=== PATIENT | female | born 1960 | race Caucasian/White ===

== ENCOUNTER 2018-07-19 11:38 | Day surgery (SDC) | payer BC ==
[~2018-07-19] VITALS: Ht 165.1 cm; Wt 77.1 kg
[~2018-07-19 11:38] MED LIST: ENAL10TA2 PO; HUMA100I3 SC; LEVO-91 PO; LR 1,000 ML IV SCH; PRAV20TA2 PO; TRES100I SC
[2018-07-19 12:07] LABS: HEMATOCRIT 41.7 % (36.0-47.0); HEMOGLOBIN 14.1 g/dl (12.0-15.5); MEAN CORPUSCULAR HEMOGLOBIN 31.1 pg (27.0-33.0); MEAN CORPUSCULAR HGB CONC 33.8 g/dl (32.0-36.5); MEAN CORPUSCULAR VOLUME 92.1 fl (80.0-96.0); PLATELET COUNT, AUTOMATED 192 10^3/uL (150-450); RED BLOOD COUNT 4.53 10^6/uL (4.00-5.40); WHITE BLOOD COUNT 8.5 10^3/uL (4.0-10.0)
[2018-07-19 12:30] LABS: BLOOD UREA NITROGEN 12 MG/DL (7-18); CALCIUM LEVEL 9.4 MG/DL (8.5-10.1); CARBON DIOXIDE LEVEL 27 MEQ/L (21-32); CHLORIDE LEVEL 108 MEQ/L (98-107); CREATININE FOR GFR 0.78 MG/DL (0.55-1.30); GLOMERULAR FILTRATION RATE > 60.0 (>51); GLUCOSE, FASTING 174 MG/DL (70-100); POTASSIUM SERUM 4.5 MEQ/L (3.5-5.1); SODIUM LEVEL 140 MEQ/L (136-145)
[2018-07-19] MEDS ORDERED: LIDOCAINE 2% INJ 100 MG/5 ML SDV (FOR ANES.) As Ordered ONE (13:38)
[2018-07-19] MEDS ORDERED: PROPOFOL 200 MG/20 ML VIAL As Ordered ONE (13:38)
[2018-07-19] MEDS ORDERED: dexameTHASONE 4 MG/ML 1ML VIAL (J1100) As Ordered ONE (13:39)
[2018-07-19] MEDS ORDERED: ONDANSETRON 4MG/2ML VIAL (J2405) As Ordered ONE (13:39)
[2018-07-19] MEDS ORDERED: fentaNYL 100 MCG/2 ML INJECTION (J3010) As Ordered ONE ×2 (13:40→15:06)
[2018-07-19] MEDS ORDERED: MIDAZOLAM INJ 2 MG/2 ML VIAL (J2250) As Ordered ONE (13:40)
[2018-07-19] MEDS: fentaNYL 100 MCG/2 ML INJECTION (J3010) IV PRN ×2 (15:10→15:15)
[2018-07-19] MEDS ORDERED: PERCOCET 5MG/325MG TAB As Ordered ONE (15:15)
[2018-07-19] MEDS ORDERED: KETOROLAC 60 MG/2 ML VIAL (J1885) As Ordered ONE (15:19)
[2018-07-19] MEDS ORDERED: ONDANSETRON 4MG/2ML VIAL (J2405) IV PRN (15:30)
[2018-07-19] MEDS ORDERED: PERCOCET 5MG/325MG TAB PO PRN (15:30)
[2018-07-19] MEDS ORDERED: LR 1,000 ML IV SCH (15:30)
[2018-07-19] MEDS ORDERED: IBUPROFEN 600 MG TAB PO PRN (15:30)
--- NOTE | 2018-07-19 16:19 | ECGEPIP ---
Stationary ECG Study [facility] Test Date: 2018-07-19 Pat Name: KATERYNA CHONG Department: Room: - Gender: F Pull Up Hand: RF : 1960 Requested By: Ludivina Nobles Order Number: [id number] Reading MD: Robbie Heaton Measurements Intervals [place] Rate: 67 P: 51 [place]: 166 QRS: 0 QRSD: 85 T: 31 QT: 363 QTc: 384 Interpretive Statements SINUS RHYTHM, Within normal limits. No prior ECG available for comparison at the time of interpretation. Electronically Signed On 07-19-2018 16:19:02 EDT by Robbie Heaton
[2018-07-19 16:33] VITALS: BP 139/80
--- NOTE | 2018-07-27 21:58 | RO ---
DATE OF PROCEDURE: 07/19/2018 This is a repeat dictation. PREOPERATIVE DIAGNOSIS: Postmenopausal bleeding with thickened endometrium. POSTOPERATIVE DIAGNOSIS: Small fibroid and a fundal, I suspect, septum based on preoperative ultrasound findings, though, of course, hysteroscopically cannot conclusively distinguish septum from bicornuate uterine shape. PROCEDURE: Dilation and curettage, hysteroscopy, myomectomy. SURGEON: Dr. Ludivina Andrews HOSPITAL CLERK: None. ANESTHESIA: LMA. DESCRIPTION OF PROCEDURE: Veronique was brought to the operating room where sufficient LMA anesthesia was induced, and she was prepped, draped and positioned in the usual sterile fashion, the bladder emptied, and the anterior aspect of the cervix grasped with a single-tooth tenaculum. The cervix was carefully dilated and the hysteroscope placed. Visualization of the endometrial cavity showed a small posterior fibroid. This was just beyond the cervix in the lower uterine segment and then in the mid fundus, it is fairly broad, what I think is septum. Of course, this could be a bicornuate uterus or an atypical appearance to synechiae, but it definitely had a more characteristic appearance for septum. And the MyoSure device was passed, and we used it to sample this area and to perform a myomectomy on the fibroid. We were able to show sort of normal uterine tissue beneath the endometrium at the fundus, and, of course, tissue consistent with fibroid where the fibroid was. So, based on these findings, I believe this is a septum, and I think that combined with the small fibroid was what the ultrasound was seeing because the endometrium itself was atrophic and as expected in a 58-year-old. We were able to, of course, do a 360-degree sampling of the endometrium with the MyoSure. This was documented with pictures as was the myomectomy and the sampling of the septum. Following all of this, with the complete removal of the myoma and the sampling and the biopsy of septum, we completed the procedure. Estimated blood loss for the procedure: About 3 mL. Fluid replacement was crystalloid. Complications: None. Condition and Disposition: Veronique tolerated the procedure well and was recovering in the recovery room in good condition.
== END 2018-07-19 16:33 | disposition home or self-care (01) ==
LOC: M SDC 11:38
PROVIDERS: ATTEND Obstetrics & Gynecology
DX: N95.0 Postmenopausal bleeding (principal); D25.9 Leiomyoma of uterus, unspecified; E10.9 Type 1 diabetes mellitus without complications; E03.9 Hypothyroidism, unspecified; E78.00 Pure hypercholesterolemia, unspecified; K59.00 Constipation, unspecified; Z88.2 Allergy status to sulfonamides; Z79.899 Other long term (current) drug therapy; Z79.4 Long term (current) use of insulin; Z78.0 Asymptomatic menopausal state
CPT/HCPCS: 36415; 58561; 80048; 85027; 88305; 93005; J1100; J1885; J2250; J2405; J3010

== ENCOUNTER → 2021-09-27 | Outpatient (CLI) | payer OTHER ==
[~2021-09-27] MED LIST changes: +ENAL-36 PO; -ENAL10TA2 PO; +LEVO125T4 PO; -LR 1,000 ML IV SCH
== END ==
LOC: M LABSMTC 10:11
PROVIDERS: ATTEND Anesthesiology
DX: Z01.818 Encounter for other preprocedural examination (principal); Z11.52 Encounter for screening for COVID-19

== ENCOUNTER 2021-09-30 07:42 | Day surgery (SDC) | payer OTHER ==
[~2021-09-30] VITALS: Ht 165.1 cm; Wt 73.0 kg
[2021-09-30] MEDS ORDERED: NS 1,000 ML IV ONE (07:45)
[2021-09-30] MEDS ORDERED: LIDOCAINE 2% INJ 100 MG/5 ML SYRINGE As Ordered ONE (09:08)
[2021-09-30] MEDS ORDERED: propofoL 200 MG/20 ML VIAL As Ordered ONE (09:08)
[2021-09-30 09:26] VITALS: BP 143/69
== END 2021-09-30 09:30 | disposition home or self-care (01) ==
LOC: M SDC 07:42
PROVIDERS: ATTEND Surgery
DX: Z12.11 Encounter for screening for malignant neoplasm of colon (principal); Z80.0 Family history of malignant neoplasm of digestive organs; E07.9 Disorder of thyroid, unspecified; E11.9 Type 2 diabetes mellitus without complications; Z88.2 Allergy status to sulfonamides

== ENCOUNTER → 2022-04-08 | Outpatient (CLI) | payer OTHER | LOC: M WHC 10:22 | PROVIDERS: ATTEND Obstetrics & Gynecology | DX: Z12.31 Encounter for screening mammogram for malignant neoplasm of breast (principal) ==

== ENCOUNTER → 2022-04-08 | Outpatient (REF) | payer OTHER | LOC: M SFHCWAGY 17:24 | PROVIDERS: ATTEND Obstetrics & Gynecology | DX: Z12.4 Encounter for screening for malignant neoplasm of cervix (principal) ==

== ENCOUNTER → 2023-06-22 | Outpatient (CLI) | payer OTHER ==
[~2023-06-22] MED LIST changes: -ENAL-36 PO; +ENAL1TAB50 PO
== END ==
LOC: M WHC 09:30
PROVIDERS: ATTEND Obstetrics & Gynecology
DX: Z12.31 Encounter for screening mammogram for malignant neoplasm of breast (principal); R22.2 Localized swelling, mass and lump, trunk

== ENCOUNTER → 2023-06-22 | Outpatient (REF) | payer OTHER | LOC: M SFHCWAGY 13:48 | PROVIDERS: ATTEND Obstetrics & Gynecology | DX: Z12.4 Encounter for screening for malignant neoplasm of cervix (principal) ==

== ENCOUNTER 2023-11-08 07:22 | Day surgery (SDC) | payer OTHER ==
[~2023-11-08] VITALS: Ht 165.1 cm; Wt 79.5 kg
[~2023-11-08 07:22] MED LIST changes: +LR 1,000 ML IV SCH; +SYNT100T PO
[2023-11-08] MEDS ORDERED: LR 1,000 ML IV SCH (08:10)
[2023-11-08 08:23] LABS: HEMATOCRIT 37.3 % (36.0-47.0); HEMOGLOBIN 12.5 g/dl (12.0-15.5); MEAN CORPUSCULAR HEMOGLOBIN 31.2 pg (27.0-33.0); MEAN CORPUSCULAR HGB CONC 33.5 g/dl (32.0-36.5); PLATELET COUNT, AUTOMATED 134 10^3/uL (150-450); RED BLOOD COUNT 4.01 10^6/uL (4.00-5.40); WHITE BLOOD COUNT 6.6 10^3/uL (4.0-10.0)
[2023-11-08] MEDS ORDERED: KETAMINE HCL 200MG/20ML VIAL As Ordered ONE (08:37)
[2023-11-08] MEDS ORDERED: LIDOCAINE 2% 100MG/5ML SDV (FOR ANES.) As Ordered ONE (08:38)
[2023-11-08] MEDS ORDERED: MIDAZOLAM INJ 2MG/2ML VIAL As Ordered ONE (08:38)
[2023-11-08] MEDS ORDERED: propofoL 200 MG/20 ML VIAL As Ordered ONE (08:38)
[2023-11-08] MEDS ORDERED: fentaNYL 100 MCG/2 ML INJECTION As Ordered ONE (09:34)
[2023-11-08] MEDS: LIDOCAINE W/EPINEPHRINE 1% 20ML VIAL As Ordered ONE (10:11)
[2023-11-08] MEDS ORDERED: IBUP80TA PO (11:05)
[2023-11-08] MEDS ORDERED: DOCU-122 PO (11:06)
[2023-11-08] MEDS ORDERED: OXYC1TAB23 PO (11:08)
[2023-11-08 11:28] VITALS: BP 152/80; TEMP 97.5; O2SAT 99
== END 2023-11-08 11:35 | disposition home or self-care (01) ==
LOC: M SDC 07:22
PROVIDERS: ATTEND Obstetrics & Gynecology
DX: L92.3 Foreign body granuloma of the skin and subcutaneous tissue (principal); M60.28 Foreign body granuloma of soft tissue, not elsewhere classified, other site; M61.9 Calcification and ossification of muscle, unspecified; E10.9 Type 1 diabetes mellitus without complications; E03.9 Hypothyroidism, unspecified; J45.909 Unspecified asthma, uncomplicated; Z88.2 Allergy status to sulfonamides; Z79.4 Long term (current) use of insulin; Z79.899 Other long term (current) drug therapy
CPT/HCPCS: 22903; 36415; 81025; 85027; 86850; 86900; 86901; 88305; J2250; J3010

== ENCOUNTER → 2024-06-24 | Outpatient (CLI) | payer OTHER ==
[~2024-06-24] MED LIST changes: +DOCU-122 PO; +IBUP80TA PO; -LR 1,000 ML IV SCH; +OXYC1TAB23 PO
== END ==
LOC: M WHC 10:19
PROVIDERS: ATTEND Obstetrics & Gynecology
DX: Z12.31 Encounter for screening mammogram for malignant neoplasm of breast (principal); R92.313 Mammographic fatty tissue density, bilateral breasts

== ENCOUNTER → 2024-06-24 | Outpatient (REF) | payer OTHER | LOC: M SFHCWAGY 12:44 | PROVIDERS: ATTEND Obstetrics & Gynecology | DX: Z12.4 Encounter for screening for malignant neoplasm of cervix (principal); Z77.9 Other contact with and (suspected) exposures hazardous to health; N95.2 Postmenopausal atrophic vaginitis ==

== ENCOUNTER → 2025-03-25 | Outpatient (CLI) | payer OTHER ==
[~2025-03-25] MED LIST changes: -DOCU-122 PO; +DOCU-210 PO; +METHACHOLINE KIT (6 VIAL.NEB PREMIX) INH ONE; -PRAV20TA2 PO; +PRAV20TA78 PO
== END ==
LOC: M CARPUL 09:13
PROVIDERS: ATTEND Internal Medicine Pulmonary Disease
DX: J45.20 Mild intermittent asthma, uncomplicated (principal)
CPT/HCPCS: 88738; 94010; 94070; 94726; 94729; 95070; J7674